=== PATIENT | male | born 1950 | race Caucasian/White ===

== ENCOUNTER 2018-12-17 05:59 | Day surgery (SDC) | payer OTHER ==
[2018-12-16 14:48] LABS: BASOPHILS 0.4 % (0-2); EOSINOPHILS 6.9 % (0-7); IMMATURE GRANULOCYTES 0.2 % (0-5); LYMPHOCYTES 33.4 % (15-50); MCH 30.5 pg (26.0-34.0); MCHC 35.1 g/dL (31.0-37.0); MCV 86.9 fL (80.0-100.0); MONOCYTES 7.5 % (2-11); NEUTROPHILS 51.6 % (40-80); PLATELET COUNT 164 10x3/uL (130-400); RBC 4.26 10x6/uL (4.20-6.10); WBC 4.9 10x3/uL (4.8-10.8)
[2018-12-16 15:12] LABS: APTT 27.5 SECONDS (22.8-39.4); INR 0.97 (0.85-1.17); PROTIME 12.4 SECONDS (11.6-15.0)
[2018-12-16 15:13] LABS: ALBUMIN 3.8 g/dL (3.4-5.0); ANION GAP 11.7 mmol/L (8-16); BILIRUBIN - TOTAL 0.39 mg/dL (0.2-1.3); CALCIUM 8.4 mg/dL (8.5-10.1); CREATININE - SERUM 1.2 mg/dL (0.6-1.3); POTASSIUM - SERUM 3.7 mmol/L (3.5-5.1); PROTEIN - SERUM 7.4 g/dL (6.4-8.2)
[~2018-12-17] VITALS: Ht 182.9 cm; Wt 115.2 kg
[~2018-12-17 05:59] MED LIST: CARDURA4 MG PO; CYCLOBENZAPRINE10 MG PO; HYDROCHLOROTHIA25 MG PO; LIDODERM 5 %1 PATCH TRANSDERM; NEURONTIN 300300 MG PO; PROTONIX40 MG PO; TRAZODONE HCL150 MG PO; ULTRAM50 MG PO
[2018-12-17 06:23] VITALS: BP 109/79; Ht 182.9 cm; Wt 115.2 kg
[2018-12-17] MEDS ORDERED: HYDROCODON-ACE1 EA10 PO (08:21)
--- NOTE | 2018-12-17 08:59 | NUR ---
0857 ICE PACKS PROVIDED FOR ABDOMEN, PT WANTS TO SIT UP ON SIDE OF BED BECAUSE OF BACK DISCOMFORT, SITTING ON SIDE OF BED WITH ASSISSTANCE, STATES THAT HELPED.
--- NOTE | 2018-12-26 07:19 | OP ---
PATIENT NAME: JESSA PALMA MEDICAL RECORD: [id number] :46 LOCATION:D.OPS ADMISSION DATE: SURGEON: LEIA MANNING MD DATE OF OPERATION: 12/17/2018 PREOPERATIVE DIAGNOSES: 1. Gallstones. 2. Chronic hepatitis C. 3. Gastroesophageal reflux disease. 4. Hypertension. 5. Hyperlipidemia. POSTOPERATIVE DIAGNOSES: 1. Gallstones. 2. Chronic hepatitis C. 3. Gastroesophageal reflux disease. 4. Hypertension. 5. Hyperlipidemia. PROCEDURE: Laparoscopic cholecystectomy. SURGEON: Leia Manning MD REPORT OF PROCEDURE: The patient's abdomen was prepped and draped in sterile fashion. A cutdown was made on the superior aspect of the umbilicus, 0 Vicryls were placed on the fascia bilaterally and the fascia was incised with 15-blade. I then bluntly entered the peritoneal cavity and placed a 12-mm Ochoa port. Under direct visualization, a 5-mm trocar was placed in the epigastrium and 2 more 5-mm trocars were placed in the right subcostal region. The gallbladder was grasped and elevated. There was no sign of any inflammatory changes. The cystic artery and cystic duct were dissected free and these were clipped proximally and distally and ligated in standard fashion. The gallbladder was taken off the liver bed using electrocautery and placed into the right upper quadrant. Any bleeding from the liver bed was then treated with electrocautery. At this point, the ports and insufflation were then removed and the gallbladder was taken out through the umbilicus. The umbilical fascia was closed with interrupted 0 Vicryls times 3. The wounds were then irrigated out with normal saline, infused with 10 mL of 0.25% Marcaine with epinephrine. The skin incisions were all closed with subcutaneous 5-0 Monocryl and dressed appropriately. COMPLICATIONS: None. CONDITION: Stable. ANESTHESIA: General endotracheal and local. BLOOD LOSS: Minimal. TRANSINT:[id number] Voice Confirmation ID: [id number] DOCUMENT ID: [id number] OPERATIVE REPORT [id number] JESSA PALMA LEIA MANNING MD at 0719 CC: [id number] DICTATION DATE: 12/17/18823 LIQUOR RECTIFIER: 12/17/18 0834 [facility] 12/17/18 [place] [id number] [place] [address]
== END 2018-12-17 10:10 | disposition home or self-care (01) ==
LOC: D.OPS 05:59 → D.PAN 08:00 → D.OPS 10:10
PROVIDERS: Anesthesiology; ATTEND Surgery
DX: K80.80 Other cholelithiasis without obstruction (principal); B19.20 Unspecified viral hepatitis C without hepatic coma; K21.9 Gastro-esophageal reflux disease without esophagitis; I10 Essential (primary) hypertension; E78.5 Hyperlipidemia, unspecified